=== PATIENT | female | born 1955 | race Caucasian/White ===

== ENCOUNTER 2019-03-04 07:47 | Inpatient (IN) ==
--- NOTE | 2019-02-02 19:22 | PAT Medication Instructions ---
Medication Instructions Date of Service February 02, 2019 Home Medications B infan-B long-L acid-L rhamn [Digestive Probiotic] 1 cap PO QAM albuterol sulfate 2.5 mg INHALATION QID PRN albuterol sulfate [Ventolin HFA] 2 puff INHALATION QID PRN cetirizine 10 mg PO QPM fluticasone furoate-vilanterol [Breo Ellipta] 1 inh INHALATION QAM fluticasone propionate 2 spray INTRANASAL QAM melatonin 5 mg PO HS montelukast 10 mg PO QAM DO NOT take the morning of surgery B infan-B long-L acid-L rhamn [Digestive Probiotic] 1 cap PO QAM montelukast 10 mg PO QAM Take morning of surgery With a small sip of water, OTHERWISE NOTHING TO EAT OR DRINK AFTER MIDNIGHT: albuterol sulfate 2.5 mg INHALATION QID PRN (use if needed; please bring with you to hospital day of surgery if possible) albuterol sulfate [Ventolin HFA] 2 puff INHALATION QID PRN (if needed) fluticasone furoate-vilanterol [Breo Ellipta] 1 inh INHALATION QAM fluticasone propionate 2 spray INTRANASAL QAM Take evening before surgery albuterol sulfate 2.5 mg INHALATION QID PRN (if needed) albuterol sulfate [Ventolin HFA] 2 puff INHALATION QID PRN (if needed) cetirizine 10 mg PO QPM melatonin 5 mg PO HS Other Notes If you have any questions please call us at [phone] or [phone] or [phone] or [phone]
--- NOTE | 2019-02-03 08:59 | Anesthesiology Consultation ---
Date of Service February 03, 2019 Assessment & Plan (1) Encounter for pre-operative examination: Chart Review Chart Review: Pending: Refer to Additional Notes / Consult section (pending preop testing (labs, EKG, CXR)) and Patient seen in Pre Admission Testing Teaching & Discussion Pre-Anesthesia Teaching/Discussion Notes: Instructed NPO after midnight before surgery,except medications with 15 cc of water. Medication instructions provide d according to the PAT guidelines. History Surgery Operation Date: 03/04/19 08:50 Proposed Procedures p Left Total Knee Replacement - Yunier Perkins MD Height/Weight Height: 5 ft Weight: 88.8 kg Allergies Allergy/AdvReac Type Severity Reaction Status Date / Time latex Allergy Unknown HIVES, Verified 01/28/19 08:35 ITCHY tramadol AdvReac Unknown NAUSEA AND Verified 01/28/19 08:33 VOMITING, DIZZINESS Medications Home Medications Medication Instructions Recorded Confirmed Last Taken B infan-B long-L acid-L rhamn 1 cap PO QAM 01/28/19 01/28/19 Unknown [Digestive Probiotic] albuterol sulfate 2.5 mg INHALATION QID PRN 01/28/19 01/28/19 Unknown albuterol sulfate [Ventolin HFA] 2 puff INHALATION QID PRN 01/28/19 01/28/19 Unknown cetirizine 10 mg PO QPM 01/28/19 01/28/19 Unknown fluticasone furoate-vilanterol 1 inh INHALATION QAM 01/28/19 01/28/19 Unknown [Breo Ellipta] fluticasone propionate 2 spray INTRANASAL QAM 01/28/19 01/28/19 Unknown melatonin 5 mg PO HS 01/28/19 01/28/19 Unknown montelukast 10 mg PO QAM 01/28/19 01/28/19 Unknown Past Medical History Medical History Asthma stable DJD (degenerative joint disease) of knee Obesity Exercise / Class Metabolic Activity III < 4 Walking/Shop/Light housework Past Family History Family History Mother Family history of diabetes mellitus Mother FHx: breast cancer Grandmother (Paternal) FHx: breast cancer Family/Other FHx: breast cancer Past Surgical History Surgical History History of colonoscopy HX POLYPS Hx of arthroscopic knee surgery LEFT Hx of dilation and curettage Hx of partial thyroidectomy EXCISION RIGHT LOBE Hx of total hysterectomy Past Anesthesia History No Hx of Anesthesia Complications and No Family Hx of Anesthesia Complications History of PONV No Hx of PONV and No Hx of Motion Sickness Social History Smoking Status: Never smoker Do You Dip or Chew Tobacco: No Hx Alcohol Use: Yes alcohol intake frequency: holidays/special occasions only Hx Substance Use: No Review of Systems Patient denies chest pain, shortness of breath, reflux, cough, wheezing, palpitations. Physical Exam Vital Signs VITALS BP 130/79 P 78 TEMP 97.7 SP02 96%RA RESP 18 PHYSICAL Full neck and c-spine range of motion. Full TMJ range of motion. TMD 3.5 finger breaths Mallampati Score 2 Dentition: intact, crown on side tooth Lungs: clear throughout to auscultation Cardiac: regular rate and rhythm, no murmurs noted Spine: normal Carotid arteries: negative bruit Extremities: no edema
--- NOTE | 2019-02-03 09:45 | XRay Report ---
XR chest Pre-admission PA/Lat CLINICAL HISTORY: PAT COMPARISON STUDY: No previous studies for comparison. FINDINGS: The cardiac and mediastinal contours are normal. There is no evidence of focal pulmonary co nsolidation. There is no evidence of failure. No pleural effusions are visualized.[A triangular densi ty visualized adjacent to left heart border is felt to represent a vascular summation. There is no co rresponding nodule on the lateral projection. IMPRESSION: No active disease in the chest. Electronically signed by: Valentin Morse M.D. 02/03/2019 9:43 AM
[2019-02-03 10:20] LABS: Basophils # (auto) 0.05 K/uL (0-0.2); Basophils % (auto) 0.8 %; Eosinophils # (auto) 0.13 K/uL (0-0.5); Eosinophils % (auto) 2.2 %; Hematocrit (blood only) 41.6 % (37-47); Hemoglobin 13.6 g/dL (12.0-16.0); Immature Granulocytes # (auto) 0.02 K/uL (0.00-0.02); Immature Granulocytes % (auto) 0.3 %; Lymphocytes # (auto) 1.37 K/uL (1.2-3.4); Lymphocytes % (auto) 22.9 %; Mean Corpuscular Hgb Conc 32.7 g/dL (32-36); Mean Corpuscular Volume 91.8 fL (80-100); Mean Platelet Volume 11.7 fL (7.4-10.4); Monocytes # (auto) 0.76 K/uL (0.11-0.59); Monocytes % (auto) 12.7 %; Neutrophils # (auto) 3.65 K/uL (1.4-6.5); Neutrophils % (auto) 61.1 %; Platelet Count 225 K/uL (130-400); RDW Coefficient of Variation 14.1 % (11.5-14.5); RDW Standard Deviation 47.6 fL (36.4-46.3); Red Blood Count 4.53 M/uL (4.2-5.4); White Blood Count 5.98 K/uL (4.8-10.8)
[2019-02-03 10:28] LABS: BUN Creatinine Ratio 18.2 (10-20); Calcium 8.8 mg/dl (8.5-10.1); Creatinine Clr Calc Pharmacy 54.4 ml/min; Est GFR (African American) 65.5; Est GFR (Non-African American) 56.5; Potassium 4.2 mmol/L (3.5-5.1)
[2019-02-03 10:37] LABS: Partial Thromboplastin Time 26.8 Seconds (21.0-31.0); Prothrombin Time 10.6 Seconds (9.0-12.0)
--- NOTE | 2019-03-01 09:41 | History and Physical Report ---
DATE OF ADMISSION: 03/04/2019 CHIEF COMPLAINT: Bilateral knee pain and discomfort, left side greater than right. HISTORY OF PRESENT ILLNESS: The patient is a 63-year-old female who presents for treatment of her knees. She has got a long history of bilateral knee pain and discomfort that has gradually gotten worse over years. She does have a history of a left knee arthroscopy done by Dr. Leon richards over 2 years ago. It helped her a little bit, then she re-aggravated her knee shortly thereafter and it has been progressively more bothersome since. She has been treated by her medical doctor with various injections, which has become less successful over time. The left knee hurts more than the right. It has become more disabling. She has difficulty walking any distance. She has nighttime pain. She would like to have her knee fixed. PAST MEDICAL HISTORY: 1. Asthma. 2. Obesity with BMI of 38. PAST SURGICAL HISTORY: Previous surgeries include: 1. Thyroid surgery. 2. Hysterectomy. 3. Left knee scope 2+ years ago. ALLERGIES: LATEX AND TRAMADOL. CURRENT MEDICINES: Include: 1. Cetirizine 10 mg for allergies. 2. Fluticasone nasal spray as needed. 3. Breo Ellipta inhaler 1 spray daily. 4. Montelukast sodium 10 mg. 5. Ventolin inhaler 2 puffs as needed. 6. Sleep MD. 7. Probiotic. SOCIAL HISTORY: A 63-year-old female. She is . Does not smoke. No alcohol intake. FAMILY HISTORY: Noncontributory. REVIEW OF SYSTEMS: Negative for diabetes, neurologic problem, vascular problems or bleeding disorders. Denies any chest pain or shortness of breath. No history of DVT or PE. No known bleeding problems. PHYSICAL EXAMINATION: GENERAL: Reveals a healthy, pleasant middle-aged female. Looks to be in pretty good health. HEENT: Benign. NECK: Supple, no lymphadenopathy. LUNGS: Clear to auscultation. HEART: Has regular rate and rhythm. ABDOMEN: Soft, nontender, nondistended. EXTREMITIES: Grossly neurovascularly intact except as follows. Examination of both knees reveals the patient walks independently. Examination of the left knee reveals fairly neutral and slight varus alignment. She has got well-healed arthroscopic portal sites. She has got small knee effusion. Range of motion is 0-125. There is no instability. She does have pain with Mansoor's testing. No mechanical symptoms. No pain with hip motion. Examination of the right knee reveals slight varus alignment. She is tender over medial joint line. Small knee effusion. Range of motion 0-125. No instability. X-RAYS: X-rays of both knees reveal advanced medial compartment DJD, left side a bit worse than the right. She has got complete loss of her joint space on the left side and near complete on the right. She has got some small osteophytes of the medial femoral condyle and medial tibial plateau on both sides. ASSESSMENT: A 63-year-old female with a history of a left knee arthroscopy in the past with bilateral knee degenerative joint disease, left side more symptomatic than the right. She has failed conservative treatment and would like to have her left knee replaced. PLAN: We will take her to the Operating Room and do a left total knee replacement. The risks and benefits of this procedure were explained to the patient including but not limited to DVT, PE, , infection, neurological injury, vascular injury, bleeding problem, pain, limited range of motion, stiffness, failure to relieve symptoms, incomplete relief of symptoms, need for further surgery in future, fracture, leg length inequality, nerve palsy, persistent pain. The patient understands and desires to proceed. Informed consent was obtained.
[~2019-03-04 07:47] MED LIST: ACETAMINOPHEN 500 MG TAB PO SCH; BUPIVACAINE 0.5 % 5 MG/1 ML PF 10ML VIAL ONE; CEFAZOLIN 2000MG 2,000 MG/15 ML SYR IV SCH; FAMOTIDINE 20 MG TAB PO SCH; GABAPENTIN 600 MG DOSE PO SCH; LR 500ML BOLUS, THEN 15ML/HR IV SCH; LR 60ML/HR IV SCH; METOCLOPRAMIDE HCL 10 MG TABLET PO SCH; ROPIVACAINE 0.5% 5 MG/ML 30 ML VIAL ONE; SCOPOLAMINE 1.5 MG TDSY TD SCH; TRANEXAMIC ACID 1,000 MG **IV Pre-op IV SCH
--- NOTE | 2019-03-04 08:47 | History & Physical Bridge Note ---
Date of Service March 04, 2019 History & Physical Bridge Note I have examined the patient, reviewed the History & Physical and in the interval since the performance of the History & Physical I have noted the following changes of clinical significance: no changes noted
[2019-03-04] MEDS ORDERED: MIDAZOLAM HCL 1 MG/ML 2ML VIAL ONE (09:45)
[2019-03-04] MEDS ORDERED: fentaNYL citrate 100 MCG/2 ML VIAL ONE (09:46)
[2019-03-04] MEDS ORDERED: LIDOCAINE HCL 2% 2 ML VIAL/AMP(20MG/ML) INFIL ONE (09:49)
[2019-03-04] MEDS ORDERED: PROPOFOL IV EMULSION 10 MG/ML 20 ML VIAL IV ONE (09:49)
[2019-03-04] MEDS ORDERED: ONDANSETRON INJ 2 MG/ML 2 ML VIAL ONE (09:49)
[2019-03-04] MEDS ORDERED: BUPIVACAINE LIPOSOME 1.3% 266 MG/20 ML VIAL ONE (10:36)
[2019-03-04] MEDS ORDERED: SODIUM CHLORIDE 0.9% PF 50 ML VIAL ONE (10:36)
[2019-03-04] MEDS ORDERED: BUPIVACAINE/EPINEPHRINE 0.25% 1:200,000 30 ML VIAL ONE (10:36)
[2019-03-04] MEDS ORDERED: BACITRACIN INJ 50,000 UNIT VIAL ONE (10:36)
[2019-03-04] MEDS ORDERED: PHENYLEPHRINE HCL 10 MG/ML VIAL ONE (11:03)
--- NOTE | 2019-03-04 12:35 | Post Operative Brief Note ---
PG Immediate Post Op with CF Date of Surgery March 04, 2019 Pre & Post Diagnosis Operation Date: 03/04/19 10:40 Pre-Op Diagnosis: Left knee degenerative joint disease Post-Op Diagnosis: Left knee degenerative joint disease I identified the patient and participated in the time-out.: Yes Procedure Operation Date: 03/04/19 10:40 Actual Procedures p Left Total Knee Arthroplasty, Cemented(Left) - Yunier Perkins MD Surgeon Yunier Perkins MD Detacher Joanna, PAC Estimated Blood Loss 50 Findings Consistent with Post-Op Diagnosis Fluids 1200 cc Specimens Specimen Description: Permanent Specimen A: Left knee bone and tissue Drains Caor Catheter Anesthesia Type Spinal MAC Complications none Disposition Accompanied Patient To Recovery: No Disposition: Recovery Room
--- NOTE | 2019-03-04 13:01 | Anesthesiology Progress Note ---
Date of Service March 04, 2019 Anesthesia Post Procedure Vital Signs Vital Signs: Temp Pulse Pulse Resp BP Pulse Ox 03/04/19 12:50 90 16 107/69 100 03/04/19 12:43 36.2 C L 90 20 111/54 L 99 03/04/19 08:27 36.6 C 95 H 18 154/75 H 96 Pain Intensity Left Knee: Pain Intensity: 5 Transfer of Care Handoff Completed per policy Notes Mental Status: alert / awake / arousable Patient Amnestic to Procedure: Yes Nausea / Vomiting: adequately controlled Pain: adequately controlled Airway Patency, RR, SpO2: stable & adequate BP & HR: stable & adequate Hydration State: stable & adequate Anesthetic Complications: no major complications apparent
--- NOTE | 2019-03-04 13:06 | Operative Report ---
DATE OF OPERATION: 03/04/2019 SURGEON: Yunier Perkins MD INSIGHT LEADER: JOSEMANUEL Dillon PREOPERATIVE DIAGNOSIS: Left knee degenerative joint disease. POSTOPERATIVE DIAGNOSIS: Left knee degenerative joint disease. PROCEDURE PERFORMED: Left cemented posterior stabilized total knee arthroplasty. COMPLICATIONS: None. ESTIMATED BLOOD LOSS: 50 mL. FLUID REPLACEMENT: 1200 mL crystalloid fluid replacement. ANESTHESIA: Spinal with adductor canal block. DRAINS: None. SPECIMENS: Left knee sent for pathology. OPERATIVE INDICATIONS: The patient is a 63-year-old female who has had a several year history of increasing left knee pain and discomfort. She had a knee scope done elsewhere about 2 years ago with pretty minimal relief. She has been through extensive conservative treatment including multiple injections and oral medicines with only temporary relief only. X-ray show progressive knee arthritis. She elected to proceed with total knee arthroplasty. OPERATIVE FINDINGS: Operative findings revealed advanced left knee DJD. She had grade 4 [id number] disease in all 3 compartments, most severe in the medial side. She had osteophytes off the medial femoral condyle and medial tibial plateau. She had a moderate sized joint effusion. OPERATIVE IMPLANTS: Operative implants consisted of: 1. Biomet Vanguard size 62.5 left posterior stabilized femoral component. 2. Biomet size 67 tibial tray. 3. A 10 mm posterior stabilized polyethylene insert. 4. A 28 x 8 all poly patella. OPERATIVE PROCEDURE: The patient was taken to the operating room, identified and placed on the operating table in supine position. All contact areas were appropriately padded. IV antibiotics provided by anesthesia team. Spinal anesthetic and adductor canal block had been provided in the holding area. Caro catheter was placed in sterile fashion. Left thigh tourniquet was then placed and left lower extremity was then prepped and draped in the usual sterile fashion. Left leg was elevated and exsanguinated with Esmarch and tourniquet was placed at 300 mmHg. An anterior approach to the left knee was then performed through a longitudinal incision centered over the patella. Sharp dissection was carried through subcutaneous tissue down below the extensor mechanism. A medial parapatellar arthrotomy incision was made. Some subperiosteal dissection was carried out medially. The fat pad was resected from beneath the patellar tendon. The lateral patellofemoral ligament was released. The patella was everted and knee was flexed. The osteophytes were taken off the distal femur. The ACL and PCL were then released from distal femur and the tibia subluxated anteriorly. The external tibial alignment jig was then placed in the anterior face of the tibia and adjusted 14 mm medially. Proximal tibial cut was made to remove about 1-2 mm of bone from the most deficient aspect of the medial tibial plateaus. Some osteophytes were taken off medial and posteromedially. Tibia sized to a size 67. Attention was then drawn to the femur. The distal femur was entered with a sharp drill. The intramedullary canal was suctioned. A left 5-degree valgus cutting guide was placed. Distal femoral cutting block was pinned in place. Distal femoral cut was made to take an additional 3 mm of bone off distal femur. Femur was then sized to a size 62.5. We downsized this almost an entire size to the narrow medial and lateral dimensions. The AP cutting block was pinned parallel to the epicondylar axis, which was 5 degrees of external rotation. The anterior cut, anterior chamfer cut, posterior cut, posterior chamfer cuts were made. Box cutting guide was placed and adjusted slightly lateral and box cut was made. The knee was flexed. The remnants of the medial and lateral menisci were excised. The osteophytes were taken off the posterior aspect of the femur. A trial femoral component was placed. The tibial tray was pinned in maximum external rotation and the drill and stem punch were used to create defect in proximal tibia for the tibial tray. The knee was then trialed and the 10 mm insert fit most appropriately. Attention was then drawn to the patella. The patella was cleaned of all soft tissues. Patella thickness measured 21 mm in thickness, it was cut down to 12. It was sized to a size 28 patella. Lug holes were drilled for a 28 patella. Lateral osteophyte was removed. Patella button was placed. Knee was taken through range of motion, patella tracked nicely with no thumbs test. Attention was then drawn toward placing the permanent components. All trial components were removed. Bone plug was placed in the distal femur to limit blood loss. A double batch of Palacos G cement was mixed. BiomTeespringguard size 62.5 left posterior stabilized femoral component, size 67 tibial tray, 10 mm posterior stabilized polyethylene insert, 28 x 8 all poly patella were then cemented in place. Knee was brought into full extension until cement hardened. A final cement check was then performed. Pericapsular tissues were injected with a total of 100 mL of combination of 20 mL of Exparel, 30 mL of normal saline, 50 mL of 0.25% Marcaine with epinephrine. The patient did receive 1 gram of tranexamic acid. The tourniquet was then let down for final tourniquet time of 56 minutes. Hemostasis was assured with use of electrocautery. The wound was once again irrigated. Extensor mechanism was then closed with combination of #1 PDS suture and #1 Vicryl suture in a [id number] fashion. Extensor mechanism was checked and found to be intact. The subcutaneous tissue was then closed with #2 Dexon suture in a buried interrupted fashion. Skin was closed with skin rosalinda. Leg was then cleaned, dried and a sterile dressing of Xeroform, 4 x 4, sterile cast padding and Herman bandage were applied. The patient then transferred to the recovery room in stable condition. The patient tolerated the procedure well with no complications. All needle and sponge counts were correct at the end of the operation. I attest to the content of the Intraoperative Record and any orders documented therein. Any exception s are noted below.
--- NOTE | 2019-03-04 13:07 | XRay Report ---
XR knee LT 1 or 2V routine HISTORY: 63 years-old Female Surgical Post Op [knee total joint arthroplasty. COMPARISON: Knee radiographs 12/12/2018 TECHNIQUE: 2 views of the left knee FINDINGS: Left knee total joint arthroplasty and patella resurfacing demonstrates satisfactory alignment. No ac guy fracture or dislocation. Anterior midline skin rosalinda are noted along with expected postsurgical soft tissue swelling and deep tissue air with surgical drainage catheter. IMPRESSION: Satisfactory positioning of the left knee total joint arthroplasty. The above report was generated using voice recognition software. It may contain grammatical, syntax o r spelling errors. Electronically signed by: Elijah Perez M.D. 03/04/2019 1:05 PM
[2019-03-04] MEDS ORDERED: ATROPINE SULFATE 0.1 MG/ML 10ML SYR IV PRN (13:11)
[2019-03-04] MEDS ORDERED: ePHEDrine sulfate 50 MG/ML AMP IV PRN (13:11)
[2019-03-04] MEDS ORDERED: HYDROmorphone INJ 1 MG/ML SYRINGE IV PRN (13:11)
[2019-03-04] MEDS ORDERED: HYDROmorphone INJ 0.5 MG/0.5 ML SYR IV PRN (13:29)
[2019-03-04] MEDS ORDERED: NALOXONE HCL 0.4 MG/1 ML VIAL/CARP IV PRN (13:29)
[2019-03-04] MEDS ORDERED: ALBUTEROL HFA 8 GM INHALER INH PRN (13:29)
[2019-03-04] MEDS ORDERED: bisacodyL 10 MG SUPP PR PRN (13:29)
[2019-03-04] MEDS ORDERED: ALBUTEROL 0.5% NEB SOLN 2.5 MG/0.5 ML VIAL INH PRN (13:29)
[2019-03-04] MEDS ORDERED: MAGNESIUM HYDROXIDE SUSP 30 ML UDC PO PRN (13:29)
[2019-03-04] MEDS ORDERED: METOCLOPRAMIDE HCL INJ 5 MG/ML 2 ML VIAL IV PRN (13:29)
[2019-03-04] MEDS ORDERED: ONDANSETRON INJ 2 MG/ML 2 ML VIAL IV PRN (13:29)
[2019-03-04] MEDS ORDERED: ALUMINUM/MAGNESIUM SUSP 30 ML UDC PO PRN (13:29)
[2019-03-04] MEDS: ACETAMINOPHEN 500 MG TAB PO SCH ×2 (15:10→21:43)
[2019-03-04] MEDS: SODIUM CHLORIDE 0.9% 1000ML 1,000 ML IV SCH ×2 (15:10→23:52)
[2019-03-04] MEDS: KETOROLAC 30 MG/ML VIAL IV SCH ×2 (15:11→20:40)
[2019-03-04] MEDS: CHECK SCOPOLAMINE PATCH PLACEMENT SCH ×2 (15:12→23:52)
[2019-03-04] MEDS: ASCORBIC ACID 500 MG TAB PO SCH (17:52)
[2019-03-04] MEDS: FERROUS GLUCONATE 324 MG TAB PO SCH (17:52)
--- NOTE | 2019-03-04 18:22 | Progress Note ---
DATE: 03/04/2019 SUBJECTIVE: A 63-year-old white female postop from a left knee replacement. She is doing well. Just starting to get the feeling and function back in her legs. She has no pain. No chest pain or shortness of breath. Not feeling dizzy or lightheaded. OBJECTIVE: VITAL SIGNS: Temperature 36.8. Vital signs stable. GENERAL: Shows a pleasant, middle-aged female. She is sitting up in her bed, talking to her and the manager social work. She looks comfortable. LUNGS: Clear to auscultation. HEART: Has a regular rate and rhythm. ABDOMEN: Soft, nontender, nondistended. EXTREMITIES: Grossly neurovascularly intact except as follows: Examination of the left lower extremity reveals the leg to be well aligned. She can dorsiflex and plantarflex her foot and toes appropriately. Her toes are pink with brisk refill. Good distal pulse. Sensory exam is just returning. X-RAYS: X-rays of the left knee from recovery room are reviewed. It shows cemented posterior stabilized total knee arthroplasty. Components looked to be in good position. No signs of problems. ASSESSMENT: A 63-year-old white female postoperative from a left knee replacement, doing well. Her function is just returning in her legs. No significant pain yet. She appears to be neurologically intact. PLAN: 1. DVT prophylaxis including thigh-high TEDs, SCDs, and aspirin twice daily. 2. PT/OT. Weight bear as tolerated. Left total knee protocol. 3. Pain control, doing well with current pain regimen. We will have to adjust her meds as the spinal wears off. 4. IV antibiotics x24 hours. 5. Disposition: Plan to discharge to home with some home health once adequately recovered.
[2019-03-04] MEDS ORDERED: TRANEXAMIC ACID 1,000 MG in 0.9 % SODIUM CHLORIDE 100 ML IV SCH (18:30)
[2019-03-04] MEDS: CEFAZOLIN 2000MG 2,000 MG/15 ML SYR IV SCH (18:38)
[2019-03-04] MEDS: CETIRIZINE HCL 10 MG TABLET PO SCH (20:40)
[2019-03-04] MEDS: SENNA 8.6 MG TAB PO SCH (20:40)
[2019-03-04] MEDS: TAPENTADOL HCL ER 50 MG TABCR PO SCH (20:40)
[2019-03-04] MEDS: DOCUSATE SODIUM 100 MG CAP PO SCH (20:40)
[2019-03-04] MEDS: ASPIRIN 81 MG ECTAB PO SCH (20:40)
[2019-03-04] MEDS ORDERED: NON-FORMULARY MEDICATION (Melatonin 5 MG) PO SCH (21:00)
[2019-03-05] MEDS: CEFAZOLIN 2000MG 2,000 MG/15 ML SYR IV SCH (03:22)
[2019-03-05] MEDS: KETOROLAC 30 MG/ML VIAL IV SCH ×4 (03:23→20:01)
[2019-03-05] MEDS: ACETAMINOPHEN 500 MG TAB PO SCH ×3 (06:19→21:21)
[2019-03-05 06:22] LABS: Hematocrit (blood only) 37.7 % (37-47); Mean Corpuscular Hemoglobin 29.8 pg (25-34); Mean Corpuscular Hgb Conc 31.8 g/dL (32-36); Mean Corpuscular Volume 93.5 fL (80-100); Mean Platelet Volume 11.9 fL (7.4-10.4); Platelet Count 197 K/uL (130-400); RDW Coefficient of Variation 14.3 % (11.5-14.5); RDW Standard Deviation 49.2 fL (36.4-46.3); Red Blood Count 4.03 M/uL (4.2-5.4); White Blood Count 7.17 K/uL (4.8-10.8)
[2019-03-05 07:01] LABS: BUN Creatinine Ratio 12.6 (10-20); Calcium 8.2 mg/dl (8.5-10.1); Creatinine Clr Calc Pharmacy 51.9 ml/min; Est GFR (African American) 61.9; Est GFR (Non-African American) 53.4; Potassium 4.3 mmol/L (3.5-5.1)
[2019-03-05] MEDS: DOCUSATE SODIUM 100 MG CAP PO SCH ×2 (07:28→21:08)
[2019-03-05] MEDS: FERROUS GLUCONATE 324 MG TAB PO SCH ×2 (07:28→18:26)
[2019-03-05] MEDS: ASPIRIN 81 MG ECTAB PO SCH ×2 (07:28→21:09)
[2019-03-05] MEDS: MULTIVITAMIN TAB PO SCH (07:28)
[2019-03-05] MEDS: ASCORBIC ACID 500 MG TAB PO SCH ×2 (07:28→18:25)
[2019-03-05] MEDS: FLUTICASONE PROPIONATE NA SPR 16 GM BTL NAE SCH (07:29)
[2019-03-05] MEDS: MONTELUKAST SODIUM 10 MG TABLET PO SCH (07:29)
[2019-03-05] MEDS: FLUTICASONE/VILANTEROL INHALER INH SCH (07:29)
[2019-03-05] MEDS: TAPENTADOL HCL ER 50 MG TABCR PO SCH ×2 (07:37→21:20)
[2019-03-05] MEDS ORDERED: [UNRECOGNIZED DRUG - OTHER] PO SCH (09:00)
[2019-03-05] MEDS: OXYCODONE HCL IR 5 MG TAB (IMMEDIATE RELEASE) PO PRN ×2 (11:44→20:15)
--- NOTE | 2019-03-05 12:43 | Progress Note ---
DATE: 03/05/2019 SUBJECTIVE: A 63-year-old female postop day #1 from a left knee replacement. She is doing pretty well. Pain is controlled. Denies any chest pain or shortness of breath. Not feeling dizzy or lightheaded. OBJECTIVE: VITAL SIGNS: Temperature 36.7. Vital signs stable. GENERAL: Shows a pleasant, middle-aged female. She is sitting up in her bed and talking to her , looks pretty comfortable. EXTREMITIES: Examination of the left leg reveals the dressing to be clean, dry and intact. She can dorsiflex and plantarflex her foot appropriately. She is neurologically intact. She has got brisk refill. LABORATORY DATA: Hemoglobin 12.0. Hematocrit 37.7. Electrolytes are stable. ASSESSMENT: A 63-year-old female postop day #1 from a left knee replacement, doing well. Pain is controlled. She is neurologically intact. PLAN: 1. DVT prophylaxis including thigh-high TEDs, SCDs, and aspirin twice a day. 2. PT/OT. Weight bear as tolerated. Left total knee protocol. 3. Pain control, doing pretty well with current pain regimen. 4. Disposition: She is planning to be discharged home with some home health once medically stable and recovered adequately.
[2019-03-05] MEDS: CETIRIZINE HCL 10 MG TABLET PO SCH (21:08)
[2019-03-05] MEDS: SENNA 8.6 MG TAB PO SCH (21:09)
[2019-03-06] MEDS: KETOROLAC 30 MG/ML VIAL IV SCH ×2 (02:14→07:42)
[2019-03-06] MEDS: ACETAMINOPHEN 500 MG TAB PO SCH (06:09)
[2019-03-06] MEDS: FLUTICASONE PROPIONATE NA SPR 16 GM BTL NAE SCH (07:40)
[2019-03-06] MEDS: MULTIVITAMIN TAB PO SCH (07:41)
[2019-03-06] MEDS: TAPENTADOL HCL ER 50 MG TABCR PO SCH (07:41)
[2019-03-06] MEDS: ASCORBIC ACID 500 MG TAB PO SCH (07:41)
[2019-03-06] MEDS: DOCUSATE SODIUM 100 MG CAP PO SCH (07:41)
[2019-03-06] MEDS: FERROUS GLUCONATE 324 MG TAB PO SCH (07:41)
[2019-03-06] MEDS: ASPIRIN 81 MG ECTAB PO SCH (07:41)
[2019-03-06] MEDS: MONTELUKAST SODIUM 10 MG TABLET PO SCH (07:42)
[2019-03-06] MEDS: FLUTICASONE/VILANTEROL INHALER INH SCH (07:42)
--- NOTE | 2019-03-06 07:58 | Progress Note ---
DATE: 03/06/2019 SUBJECTIVE: A 63-year-old female postop day 2 from left knee replacement. She is doing pretty well. Pain has been reasonably well controlled. No chest pain or shortness of breath. Not feeling dizzy or lightheaded. OBJECTIVE: VITAL SIGNS: Temperature 37.0. Vital signs stable. GENERAL: Shows a pleasant, middle-aged female. I had to awake her this morning. EXTREMITIES: Examination of the left leg reveals the leg to be well aligned. Dressing is clean, dry and intact. Calf is soft and supple. She is neurologically intact. ASSESSMENT: A 63-year-old female postop day 2 from a left knee replacement, doing reasonably well. Pain is controlled. She is neurologically intact. PLAN: 1. DVT prophylaxis including thigh-high TEDs, SCDs, and aspirin twice a day. 2. PT/OT. Weight bear as tolerated. Left total knee protocol. 3. Pain control, doing pretty well on current pain regimen. 4. Disposition: Plan to discharge to home with some home health later today.
[2019-03-06] MEDS: OXYCODONE HCL IR 5 MG TAB (IMMEDIATE RELEASE) PO PRN (08:44)
--- NOTE | 2019-03-10 18:34 | Discharge Summary ---
ADMITTING PHYSICIAN AND SURGEON: Dr. Yunier Perkins. ADMITTING DIAGNOSIS: Left knee degenerative joint disease. SURGERY PERFORMED: Left total knee arthroplasty. SECONDARY DIAGNOSES: Arthritis, obesity. CONSULTS: None obtained. HISTORY AND PHYSICAL EXAMINATION: Well documented in the patient's chart. HOSPITAL COURSE: The patient was admitted on 03/04/2019 underwent total knee arthroplasty, tolerated the procedure well. There were no complications. She was transferred to the PACU postoperatively and later to the orthopedic floor for further care. She was given Ancef for antibiotic prophylaxis, LILIYA stockings, SCDs and aspirin for DVT prophylaxis. Hemoglobin, hematocrit and vital signs were monitored during her hospital stay and remained stable. She did not require any blood transfusions. There were no complications. Postop day 2, she was tolerating a regular diet, pain was controlled with oral pain medicine. She was participating in physical therapy. On postop day 2, she was discharged home, set up with home health services. She was given printed discharge instructions including new prescriptions for extra strength Tylenol, aspirin, and oxycodone. Continue home medicines. Continue physical therapy, weightbearing as tolerated, LILIYA stockings. Follow up approximately 2 weeks postop or sooner if there are any problems or concerns.
== END 2019-03-06 12:40 | disposition home health service (06) | DRG 470 ==
LOC: ASU 07:47 → 3E 12:39